=== PATIENT | male | born 1970 | race Caucasian/White ===

== ENCOUNTER → 2016-10-28 | Outpatient (CLI) | payer OTHER ==
--- NOTE | 2016-10-28 12:42 | XR ---
EXAMINATION TYPE: XR abdomen 1V DATE OF EXAM: 10/28/2016 12:28 PM COMPARISON: NONE HISTORY: Pain TECHNIQUE: Single supine KUB image of the abdomen is obtained FINDINGS: Small bowel demonstrates no evidence for dilatation or air fluid levels. Gas and fecal material is seen in non-distended colon. No convincing evidence for pneumoperitoneum. 6.9 mm calcific density overlies the left kidney. The lung bases are clear. The osseous structures are intact. IMPRESSION: 1. Overall nonobstructive bowel gas pattern.
--- NOTE | 2016-10-28 12:43 | XR ---
EXAMINATION TYPE: XR femur RT DATE OF EXAM: 10/28/2016 12:28 PM CLINICAL HISTORY: pain TECHNIQUE: Two views of the right femur are obtained. COMPARISON: None. FINDINGS: There is no acute fracture or dislocation seen of the femur. The hip and knee joints appear within normal limits. The overlying soft tissue appears unremarkable. IMPRESSION: There is no acute fracture or dislocation seen of the femur. ICD 10 NO FRACTURE, INITIAL EVALUATION
== END | disposition home or self-care (01) ==
LOC: RADXRMAIN 12:01
PROVIDERS: ATTEND Pediatrics
DX: Z01.818 Encounter for other preprocedural examination (principal); Z98.890 Other specified postprocedural states
CPT/HCPCS: 74000

== ENCOUNTER → 2018-10-10 | Outpatient (CLI) | payer OTHER, MEDICARE ==
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
== END | disposition home or self-care (01) ==
LOC: RADFLWHC 10:00 → EEVIPCON 10:00
PROVIDERS: ATTEND Internal Medicine
DX: J98.6 Disorders of diaphragm (principal)
CPT/HCPCS: 76000

== ENCOUNTER → 2019-02-15 | Outpatient (CLI) | payer MEDICARE, OTHER ==
[2019-02-15 16:19] LABS: Albumin 4.6 g/dL (3.80-4.90); Albumin/Globulin Ratio 3.07 (1.60-3.17); Bilirubin, Conjugated 0.2 mg/dL (0.20-0.40); Bilirubin,Unconjugated 0.3 mg/dL; Globulin 1.5 g/dL (1.6-3.3); Total Bilirubin 0.5 mg/dL (0.2-1.2); Total Protein 6.1 g/dL (6.2-8.2)
== END | disposition home or self-care (01) ==
LOC: LABWHC1 09:43
PROVIDERS: ATTEND Physical Medicine & Rehabilitation
DX: Z51.81 Encounter for therapeutic drug level monitoring (principal)
CPT/HCPCS: 36415; 80076

== ENCOUNTER 2019-11-11 10:37 | Emergency (ER) | payer MEDICARE, OTHER ==
[2019-11-11 11:15] VITALS: BP 126/64; RESP 18; TEMP 98.3
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
--- NOTE | 2019-11-11 14:29 | CT ---
EXAMINATION TYPE: CT pelvis w con DATE OF EXAM: 11/11/2019 COMPARISON: None. HISTORY: Left groin abscess. Pain and swelling left groin. CT DLP: 682.2 mGycm Automated exposure control for dose reduction was used. CONTRAST: Performed with IV Contrast, patient injected with 100 mL of Isovue 300. FINDINGS: Asymmetric right anterolateral upper thigh that stranding near image 81 could reflect soft tissue inf ection or cellulitis. Correlate clinically. No well-formed fluid collection or drainable abscess at t his level. Bilateral groin region shows no suspicious mass or adenopathy. No significant fat stranding is seen. Subcentimeter lymph nodes are present bilaterally. No significant hernias are present. Asymmetric mild thickening and fat stranding left posterior inferior gluteal region with some thin-wa lled fluid measuring 4.0 x 1.3 cm image 79. No well-formed drainable thick-walled abscess. Partial visualization of small to moderate-sized bilateral scrotal fluid collection or hydroceles. Mildly enlarged prostate gland consistent with BPH bulging on bladder base. Central calcifications. No suspicious small or large bowel dilatation. Appendix within normal limits right lower quadrant. Sm all fat-containing umbilical hernia. Prominence of fecal material in the rectum. Mild narrowing of both hip joints. Prominent bony projection right iliac crest could reflect heteroto pic ossification or product of old trauma. Infrarenal IVC filter right L2-L3 level noted. There is 9 mm pelvic calculus left kidney coronal imag e 46. IMPRESSION: 1. Moderate Inflammatory change posterior medial left inferior gluteal region as detailed above with thin-walled fluid collection noted. No well-formed drainable thick walled abscess currently. 2. Cannot exclude a second area of inflammatory change or cellulitis anterolateral right thigh versus old scar, correlate clinically. 3. Nonobstructing 9 mm left renal pelvic calculus, advise nonemergent urology referral if this is not known finding.
[2019-11-11 15:05] VITALS: PULSE 88
== END 2019-11-11 15:13 | disposition home or self-care (01) ==
LOC: EC 10:37
DX: L02.214 Cutaneous abscess of groin (principal); N20.0 Calculus of kidney; R41.82 Altered mental status, unspecified; G81.91 Hemiplegia, unspecified affecting right dominant side; Z99.3 Dependence on wheelchair; Z87.820 Personal history of traumatic brain injury; Z98.890 Other specified postprocedural states
CPT/HCPCS: 72193; 99283; Q9967; 87070; 87205

== ENCOUNTER 2019-12-04 10:50 | Day surgery (SDC) | payer OTHER, MEDICARE ==
[2019-12-02 15:20] VITALS: BMI 25.8
[~2019-12-04 10:50] MED LIST: ALBUTEROL NEB (CONC) 2.5 MG/0.5 ML INHALATION ONE; LACTATED RINGERS 1,000 ML IV SCH; LIDOCAINE 1% (10MG/ML) FOR IV START INTRADERMA PRN; LIDOCAINE 2% (PF) 20 MG/ML 5 ML VIAL INHALATION ONE; LIDOCAINE VISCOUS 300 MG/15 ML CUP MUCOUS MEM ONE; SODIUM CHLORIDE 0.9% 1,000 ML IV SCH
[2019-12-04 11:26] VITALS: RESP 16; TEMP 98.7
[2019-12-04] MEDS ORDERED: KETAMINE 10 MG/ML 20 ML VIAL ONE (12:12)
[2019-12-04] MEDS ORDERED: MIDAZOLAM 2 MG/2 ML VIAL ONE (12:12)
[2019-12-04] MEDS ORDERED: GLYCOPYRROLATE 0.2 MG/ML 2 ML VIAL ONE (12:12)
[2019-12-04] MEDS ORDERED: LIDOCAINE 2% INJ 20 MG/ML INTRATRACH ONE (12:19)
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
[2019-12-04 13:25] VITALS: BP 105/69; PULSE 81
== END 2019-12-04 13:45 | disposition home or self-care (01) ==
LOC: ORWHC2ENDO 10:50
PROVIDERS: ATTEND Internal Medicine Critical Care Medicine
DX: J39.8 Other specified diseases of upper respiratory tract (principal); E55.9 Vitamin D deficiency, unspecified; N31.9 Neuromuscular dysfunction of bladder, unspecified; J98.6 Disorders of diaphragm; G81.91 Hemiplegia, unspecified affecting right dominant side; Z90.49 Acquired absence of other specified parts of digestive tract; Z99.3 Dependence on wheelchair; Z87.820 Personal history of traumatic brain injury; Z82.49 Family history of ischemic heart disease and other diseases of the circulatory system; Z83.3 Family history of diabetes mellitus; Z82.69 Family history of other diseases of the musculoskeletal system and connective tissue; Z79.899 Other long term (current) drug therapy
CPT/HCPCS: 94640; 88108; 88305; 87252; 87070; 87205; 87116; 87102; 87206; 31624; J2250; J2001; 87496; 87498; 87502; 87529; 87634; 87798

== ENCOUNTER 2020-10-14 07:25 | Day surgery (SDC) | payer MEDICARE ==
[2020-10-07 15:04] VITALS: BMI 26.6
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
[~2020-10-14 07:25] MED LIST changes: -ALBUTEROL NEB (CONC) 2.5 MG/0.5 ML INHALATION ONE; +DEXAMETHASONE SOD PHOSPHATE 4 MG/ML 1 ML VIAL IV ONE; +HYDROmorphone 0.5 MG/0.5 ML SYRINGE IVP PRN; -LIDOCAINE 1% (10MG/ML) FOR IV START INTRADERMA PRN; -LIDOCAINE 2% (PF) 20 MG/ML 5 ML VIAL INHALATION ONE; -LIDOCAINE VISCOUS 300 MG/15 ML CUP MUCOUS MEM ONE; +ONDANSETRON 4 MG/2 ML VIAL IVP ONE; -SODIUM CHLORIDE 0.9% 1,000 ML IV SCH
[2020-10-14] MEDS ORDERED: LIDOCAINE 1% (10MG/ML) FOR IV START INTRADERMA ONE (08:46)
[2020-10-14] MEDS ORDERED: BUPIVACAINE (PF) 0.25% 30 ML VIAL SQ ONE ×2 (09:20→09:42)
[2020-10-14] MEDS ORDERED: ePHEDrine SULFATE/0.9% NACL/PF 50 MG/5 ML SYRINGE IV ONE (09:21)
[2020-10-14] MEDS ORDERED: fentaNYL (PF) 50 MCG/ML 2 ML AMP ONE (09:21)
[2020-10-14] MEDS ORDERED: PROPOFOL 10 MG/ML 20 ML VIAL IV ONE (09:21)
[2020-10-14] MEDS ORDERED: LIDOCAINE 1% INJ 10MG/ML (20 ML MDV) ONE (09:21)
--- NOTE | 2020-10-14 10:09 | P.OP ---
Date of Procedure: 10/14/20 Preoperative Diagnosis: Right hydrocele Postoperative Diagnosis: Same Procedure(s) Performed: Right hydrocelectomy Anesthesia: OCA Surgeon: Gavin Roberts Estimated Blood Loss (ml): 10 Pathology: other (Hydrocele sac) Condition: stable Disposition: PACU Indications for Procedure: Mr Valencia is 50 yo male with hx of right hydrocele, he is symptomatic from his hydrocele. I discussed with him and his the option of doing a right hydrocelectomy. Discussed the risk of bleeding, infection, injury to the testicle and risk of recurrence. I also discussed risk from anesthesia with them, discussed given his comorbidities he is at increased risk of complication. They understood all risks and agreed to proceed with right hydrocelectom Operative Findings: Right hydrocele Description of Procedure: Patient was brought to the operating room, general anesthesia was induced. He was prepped and draped in sterile fashion and placed in a supine position. An incision was made along the right hemiscrotum using a scalpel, the dartos tissue was dissected down using ultra cautery. This point the hydrocele sac was delivered. All surrounding tissue was dissected off of the hydrocele sac. Incision was made in the hydrocele sac and fluid was drained. Of note the hydrocele sac was fairly thickened, The hydrocele was sac was excised and sent to pathology. The edges of the hydrocele sac were cauterized. The testicle was delivered back into the scrotum in normal anatomical position. The dartos was closed using 3-0 Vicryl in running fashion. The skin was closed using 3-0 Monocryl in running fashion. Skin glue was applied to the incision. Patient was awakened from anesthesia and taken to recovery in stable condition
[2020-10-14 10:25] VITALS: TEMP 97.4
[2020-10-14 10:30] VITALS: RESP 16
[2020-10-14] MEDS ORDERED: LACTATED RINGERS 1,000 ML IV ONE (10:58)
[2020-10-14 11:34] VITALS: BP 118/77; PULSE 85
== END 2020-10-14 12:00 | disposition home or self-care (01) ==
LOC: OR 07:25
PROVIDERS: ATTEND Urology
DX: N43.3 Hydrocele, unspecified (principal); E78.5 Hyperlipidemia, unspecified; R47.01 Aphasia; M62.40 Contracture of muscle, unspecified site; R21 Rash and other nonspecific skin eruption; J98.6 Disorders of diaphragm; N31.9 Neuromuscular dysfunction of bladder, unspecified; G81.91 Hemiplegia, unspecified affecting right dominant side; Z87.820 Personal history of traumatic brain injury; Z87.828 Personal history of other (healed) physical injury and trauma; Z98.890 Other specified postprocedural states; Z99.3 Dependence on wheelchair; Z90.49 Acquired absence of other specified parts of digestive tract; Z87.39 Personal history of other diseases of the musculoskeletal system and connective tissue; Z79.899 Other long term (current) drug therapy; Z87.09 Personal history of other diseases of the respiratory system
CPT/HCPCS: 88302; 55040; J1100; J0690; J2405; J2001; J3010; J2704; J1170

== ENCOUNTER → 2022-01-26 | Outpatient (CLI) | payer MEDICARE ==
[2022-01-26 19:04] LABS: Basophils # (A) 0.06 X 10*3/uL (0.00-0.10); Basophils % (A) 0.7 %; Eosinophils # (A) 0.07 X 10*3/uL (0.04-0.35); Eosinophils % (A) 0.9 %; HCT 48.3 % (39.6-50.0); HGB 14.8 g/dL (13.0-17.0); Immature Grans, Automated 0.5 %; Lymphocytes # (A) 2.02 X 10*3/uL (0.90-5.00); Lymphocytes % (A) 25.1 %; MCH 29.4 pg (27.0-32.0); MCHC 30.6 g/dL (32.0-37.0); Mean Platelet Volume 11.6 fL (9.5-12.2); Monocytes # (A) 0.39 X 10*3/uL (0.20-1.00); Monocytes % (A) 4.9 %; NRBC Per 100 WBC 0 /100 WBCS (0.0-0.0); Neutrophils # (A) 5.46 X 10*3/uL (1.80-7.70); Neutrophils % (A) 67.9 %; Platelet Count 283 X 10*3/uL (140-440); RBC 5.03 X 10*6/uL (4.40-5.60); RDW 13.2 % (11.5-14.5); WBC 8.04 X 10*3/uL (4.50-10.00)
[2022-01-26 19:15] LABS: ALT 37 U/L (10-49); AST 25 U/L (14-35); African American GFR (CKD) 149.4 (60.0-200.0); Albumin 4.1 g/dL (3.8-4.9); Albumin/Globulin Ratio 1.54 (1.60-3.17); Alkaline Phosphatase 97 U/L (41-126); Blood Urea Nitrogen 14.6 mg/dL (9.0-27.0); Calcium 9.4 mg/dL (8.7-10.3); Carbon Dioxide 21.8 mmol/L (20.0-27.5); Chloride 103 mmol/L (96-109); Globulin 2.6 g/dL (1.6-3.3); Glucose 101 mg/dL (70-110); Lipase 37 U/L (14-60); Non-African American GFR(CKD) 128.9 (60.0-200.0); Potassium 4.4 mmol/L (3.5-5.5); Sodium 138 mmol/L (135-145); Total Bilirubin <0.15 mg/dL (0.30-1.20); Total Protein 6.7 g/dL (6.2-8.2)
== END | disposition home or self-care (01) ==
LOC: LABWHC1 10:39
PROVIDERS: ATTEND Family Medicine
DX: E11.9 Type 2 diabetes mellitus without complications (principal); R30.0 Dysuria
CPT/HCPCS: 36415; 80053; 83690; 85025; 87086

== ENCOUNTER 2022-02-18 10:04 | Day surgery (SDC) | payer MEDICARE ==
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
[2022-02-17 09:11] VITALS: BMI 23.5
[~2022-02-18 10:04] MED LIST changes: +CIPROFLOXACIN/DEXTROSE PMX 400 MG in DEXTROSE/WATER 1 200ML.BAG IVPB PRN; +GENTAMICIN 120 MG in SODIUM CHLORIDE 0.9% 100 ML IVPB PRN; +MIDAZOLAM 2 MG/2 ML VIAL IV PRN; -ONDANSETRON 4 MG/2 ML VIAL IVP ONE; +SCOPOLAMINE 1 MG/72 HR PATCH TRANSDERM ONE
[2022-02-18] MEDS ORDERED: LACTATED RINGERS 1,000 ML IV ONE (10:48)
--- NOTE | 2022-02-18 10:56 | XR ---
KUB HISTORY: Kidney stones Frontal KUB is submitted There is a calcification likely in the region of the left renal pelvis measuring approximately 2.3 cm , smaller calcifications are also scattered over the left kidney, several calcifications measure only approximately 3 to 4 mm, at the lower pole there is an approximate 11 mm calcification as well as a 5 mm calcification. Bowel gas obscures the right kidney. Inferior vena cava filter is present. There are calcifications within the pelvis. impression: Left-sided nephrolithiasis, multiple stones are present.
[2022-02-18] MEDS ORDERED: ONDANSETRON 4 MG/2 ML VIAL IVP ONE (11:26)
[2022-02-18] MEDS ORDERED: PHENYLEPHRINE-0.9% NACL SYG 1,000 MCG/10 ML SYRINGE ONE (11:55)
[2022-02-18] MEDS ORDERED: PROPOFOL 10 MG/ML 20 ML VIAL IV ONE (11:55)
[2022-02-18] MEDS ORDERED: MIDAZOLAM 2 MG/2 ML VIAL ONE (11:55)
[2022-02-18] MEDS ORDERED: LIDOCAINE 2% INJ 20 MG/ML (2 ML VIAL) ONE (11:55)
[2022-02-18] MEDS ORDERED: fentaNYL (PF) 50 MCG/ML 2 ML AMP ONE (11:55)
[2022-02-18 13:56] VITALS: RESP 16; TEMP 97
--- NOTE | 2022-02-18 14:01 | P.OP ---
Date of Procedure: 02/18/22 Preoperative Diagnosis: Left renal stone Postoperative Diagnosis: Same Procedure(s) Performed: Cystoscopy, left ureteroscopy, holmium laser lithotripsy stone basketing and stent insertion Implants: 6-Honduran by 26 cm stent in the left ureter Anesthesia: CANDI Surgeon: Gavin Roberts Estimated Blood Loss (ml): 20 Pathology: other (left renal stone) Condition: stable Disposition: PACU Indications for Procedure: This is a 51-year-old male that is quadriplegic, that presents with left-sided renal stone. Underwent CT which showed evidence of a 1.6 cm left sided renal pelvis stone and a 4 mm left-sided lower pole stone. Of note KUB this morning showed the stone in the pelvis measures at 2.3 cm He is symptomatic from his stone in the stones are causing mild hydronephrosis. Discussed given his symptoms and mild hydronephrosis a recommended proceeding with surgical intervention. Discussed with him and his the option of doing a staged ureteroscopy versus a PCNL. Discussed the risk and benefit of each approach. They agreed to proceed with left-sided ureteroscopy with holmium laser. Discussed the risk which includes but not limited to bleeding, infection, injury to the ureter, potential of sepsis. Discussed also with him given his stone burden he would require a staged procedure to address his stone. Discussed we will plan on proceeding with left-sided ureteroscopy followed by a second stage within 2-4 weeks. Discussed also he is at high risk of complication from anesthesia, given his comorbidities. They understood all the risk and agreed to proceed with left-sided ureteroscopy with holmium laser lithotripsy and stone basketing this will be a staged surgery Operative Findings: Large stone in the renal pelvis Description of Procedure: Patient brought to the operating room, general anesthesia was induced. He was prepped and draped in sterile fashion and placed in dorsal lithotomy position. Patient had narrowing at the meatus which was dilated using the male sounds. Cystoscopy fitted 17-Honduran sheath was inserted per urethra, cystoscopy was performed which showed no abnormality within the bladder. Of note patient had an enlarged median lobe. Attention was then carried to the left ureteral orifice which was intubated with a sensor wire. Next a ureteral access sheath was passed over the wire and into the proximal ureter. Next a flexible ureteroscope was inserted through the access sheath, renoscopy was performed which showed a large stone within the renal pelvis. Using the holmium laser stone was dusted, next sizable fragments were removed using stone basket. Repeat fluoroscopy and renoscopy showed no sizable fragments, but of note there was significant amount of dust which limited visualization. At this time pullback ureteroscopy was performed which showed no injury to the ureter or any ureteral stone. As the ureteroscope was withdrawn and a sensor wire was advanced through. Next a ureteral stent was passed over the wire, the proximal curl was visualized on fluoroscopy and the distal curl was visualized using the cystoscope. The bladder was emptied at the end the case. At this time he will follow-up in 2 weeks for a second stage ureteroscopy and stent removal
[2022-02-18 14:55] VITALS: BP 132/77; PULSE 78
--- NOTE | 2022-02-18 15:21 | FL ---
Fluoroscopy HISTORY: Lithotripsy for nephrolithiasis 53 seconds fluoroscopy time supplied to the referring clinician. 4 intraoperative C-arm images docum ent the procedure. See dictated report from urology.
== END 2022-02-18 15:31 | disposition home or self-care (01) ==
LOC: OR 10:04
PROVIDERS: ATTEND Urology
DX: N13.2 Hydronephrosis with renal and ureteral calculous obstruction (principal); G82.50 Quadriplegia, unspecified; E78.5 Hyperlipidemia, unspecified; R47.01 Aphasia; Z87.820 Personal history of traumatic brain injury; Z99.3 Dependence on wheelchair; Z79.899 Other long term (current) drug therapy; Z90.49 Acquired absence of other specified parts of digestive tract; Z98.890 Other specified postprocedural states
CPT/HCPCS: 82365; 74018; 52356; C2625; C1894; C1758; C1769; J2250; J2405; J3010; J0744; J1580; J2370; J2704; J2001

== ENCOUNTER → 2022-03-10 | Day surgery (SDC) | payer MEDICARE ==
[2022-03-09 09:23] VITALS: BMI 23.5
[~2022-03-10] MED LIST changes: +DEXAMETHASONE SOD PHOSPHATE 4 MG/ML 1 ML VIAL ONE; +IOPAMIDOL-370 50ML BTL IRRIGATION ONE; +LACTATED RINGERS 1,000 ML IV ONE; +LIDOCAINE 2% INJ 20 MG/ML (2 ML VIAL) ONE; -MIDAZOLAM 2 MG/2 ML VIAL IV PRN; +MIDAZOLAM 2 MG/2 ML VIAL ONE; +ONDANSETRON 4 MG/2 ML VIAL IVP ONE; +ONDANSETRON 4 MG/2 ML VIAL ONE; +PHENYLEPHRINE-0.9% NACL SYG 1,000 MCG/10 ML SYRINGE ONE; +PROPOFOL 10 MG/ML 20 ML VIAL IV ONE; -SCOPOLAMINE 1 MG/72 HR PATCH TRANSDERM ONE; +fentaNYL (PF) 50 MCG/ML 2 ML AMP ONE
[2022-03-10 15:06] VITALS: RESP 18
[2022-03-10 15:44] VITALS: BP 145/76; PULSE 76
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
--- NOTE | 2022-03-10 16:12 | XR ---
KUB HISTORY: Presurgical Frontal KUB submitted and correlated prior exam 02/18/2022 Left double-J stent is in place. Multiple loops of gas-filled bowel are scattered over the abdomen li miting evaluation. Inferior vena cava filter is again seen. There are calcifications seen within the pelvis similar to prior. Calcifications are seen overlying the left kidney, suggestion of partial sta ghorn calculus, possible fragmented stones. Posttraumatic changes to the right ilium is stable. IMPRESSION: Nephrolithiasis with indwelling left ureteral stent.
--- NOTE | 2022-03-10 16:14 | P.OP ---
Date of Procedure: 03/10/22 Preoperative Diagnosis: Left renal stone Postoperative Diagnosis: Same Procedure(s) Performed: Cystoscopy, left ureteroscopy, holmium laser lithotripsy, stone basketing and stent removal Implants: None Anesthesia: CANDI Surgeon: Gavin Roberts Estimated Blood Loss (ml): 5 Pathology: other (Left renal stone) Condition: stable Disposition: PACU Indications for Procedure: This is a 51-year-old male that is quadriplegic, that presents with left-sided renal stone. Underwent CT which showed evidence of a 1.6 cm left sided renal pelvis stone and a 4 mm left-sided lower pole stone. He is symptomatic from his stone in the stones are causing mild hydronephrosis. He underwent left sided stage 1 ureteroscopy with holmium laser on 02/18/22, he presents today for second stage left sided ureteroscopy with holmium laser . Discussed the risk which includes but not limited to bleeding, infection, injury to the ureter, potential of sepsis. Discussed also he is at high risk of complication from anesthesia, given his comorbidities. They understood all the risk and agreed to proceed with left-sided ureteroscopy with holmium laser lithotripsy and stone basketing this will be a second staged surgery Operative Findings: Multiple small stone fragments within the lower pole of the left kidney Description of Procedure: Patient brought to the operating room, general anesthesia was induced. He was prepped and draped in sterile fashion a placed in dorsal lithotomy position. Cystoscopy fitted with a 21-Armenian sheath was inserted per urethra, cystoscopy was performed showed no abnormality within the bladder. the stent was grasped and removed intact. Next a semirigid ureteroscope was advanced up the urethra and up the left ureteral orifice, the scope was advanced all the way up to the proximal ureter which showed no stones along the course of the ureter. Pullback ureteroscopy was performed which showed no injury to the ureter as the ureteroscope was withdrawn a sensor wire was advanced through. Next a 1214 Armenian access sheath was passed over the wire and into the proximal ureter. Next the flexible ureteroscope was inserted through the access sheath, renoscopy was performed showed a small fragments within the lower pole. Using the holmium laser the fragments were further lasered, sizable fragments were removed and sent to analysis. Repeat renoscopy showed no sizable fragments or injury to the kidney. Pullback ureteroscopy was performed which showed no injury to the ureter or any ureteral fragments. There was no evidence of ureteral edema and the ureter was dilated thus stent was not placed. The bladder was emptied at the end of the case. Patient tolerated procedure well was taken to recovery in stable condition
--- NOTE | 2022-03-11 07:39 | FL ---
Fluoroscopy HISTORY: Left renal stone 24 seconds fluoroscopy time supplied to the referring clinician. 2 intraoperative C-arm images docum ent the procedure. See dictated report from urology.
== END | disposition home or self-care (01) ==
LOC: OR 10:43
PROVIDERS: ATTEND Urology
DX: N13.2 Hydronephrosis with renal and ureteral calculous obstruction (principal); G82.50 Quadriplegia, unspecified
CPT/HCPCS: 52353; 82365; 74420; 74018; C1894; C1769; J2250; J1100; J2405; J3010; J2370; J2704; Q9967; J2001

== ENCOUNTER → 2023-03-08 | Outpatient (CLI) | payer MEDICARE ==
[2023-03-08 15:57] LABS: ALT 25 U/L (10-49); AST 19 U/L (14-35); African American GFR (CKD) 135.7 (60.0-200.0); Albumin 4.6 g/dL (3.8-4.9); Alkaline Phosphatase 96 U/L (41-126); BUN/Creat Ratio 20.62 Ratio (12.00-20.00); Calcium 9.8 mg/dL (8.7-10.3); Carbon Dioxide 26.7 mmol/L (20.0-27.5); Chloride 101 mmol/L (96-109); Chol/HDL Ratio 2.29 Ratio; Glucose 129 mg/dL (70-110); LDL Cholesterol,Calculated 33.1 mg/dL (0.0-131.0); Non-African American GFR(CKD) 117.1 (60.0-200.0); Potassium 4.4 mmol/L (3.5-5.5); Sodium 139 mmol/L (135-145); Total Protein 6.6 g/dL (6.2-8.2)
== END | disposition home or self-care (01) ==
LOC: LABWHC1 09:41
PROVIDERS: ATTEND Family Medicine
DX: E11.9 Type 2 diabetes mellitus without complications (principal); E78.00 Pure hypercholesterolemia, unspecified
CPT/HCPCS: 36415; 80053; 80061; 83036; 84443

== ENCOUNTER → 2023-05-30 | Outpatient (CLI) | payer MEDICARE ==
[2023-05-30 19:58] LABS: ALT 22 U/L (10-49); AST 16 U/L (14-35); Albumin 4.9 d/dL (3.8-4.9); Albumin/Globulin Ratio 2.72 Ratio (1.60-3.17); Alkaline Phosphatase 88 U/L (41-126); Blood Urea Nitrogen 14.7 mg/dL (9.0-27.0); Calcium 9.7 mg/dL (8.7-10.3); Carbon Dioxide 26.6 mmol/L (21.6-31.8); Chloride 104 mmol/L (96-109); Chol/HDL Ratio 2.38 Ratio; Globulin 1.8 d/dL (1.6-3.3); Glucose 107 mg/dL (70-110); LDL Cholesterol,Calculated 40.2 mg/dL (0.0-131.0); Potassium 4.7 mmol/L (3.5-5.5); Sodium 141 mmol/L (135-145); Total Bilirubin 0.3 mg/dL (0.3-1.2); Total Protein 6.7 d/dL (6.2-8.2); VLDL Calculation 17.74 mg/dL (5.00-40.00)
[2023-05-30 21:30] LABS: Basophils # (A) 0.04 X 10*3/uL (0.00-0.10); Basophils % (A) 0.6 %; Eosinophils # (A) 0.07 X 10*3/uL (0.04-0.35); HCT 48.8 % (39.6-50.0); HGB 16.2 d/dL (13.0-17.0); Lymphocytes # (A) 1.99 X 10*3/uL (0.90-5.00); Lymphocytes % (A) 28.6 %; MCHC 33.2 d/dL (32.0-37.0); MCV 93.5 FL (80.0-97.0); Monocytes # (A) 0.35 X 10*3/uL (0.20-1.00); NRBC Per 100 WBC 0 X 10*3/uL (0.00-0.01); Neutrophils # (A) 4.47 X 10*3/uL (1.80-7.70); Neutrophils % (A) 64.2 %; Platelet Count 130 X 10*3/uL (140-440); RBC 5.22 X 10*6/uL (4.40-5.60); RDW 12.8 % (11.5-14.5); WBC 6.96 X 10*3/uL (4.50-10.00)
== END | disposition home or self-care (01) ==
LOC: LABWHC1 12:45
PROVIDERS: ATTEND Family Medicine
DX: Z00.00 Encounter for general adult medical examination without abnormal findings (principal); Z12.5 Encounter for screening for malignant neoplasm of prostate; E11.9 Type 2 diabetes mellitus without complications; E78.00 Pure hypercholesterolemia, unspecified; S06.9X9S Unspecified intracranial injury with loss of consciousness of unspecified duration, sequela; Y99.9 Unspecified external cause status
CPT/HCPCS: 36415; 80053; 80061; 83036; 84153; 84443; 85025

== ENCOUNTER 2024-05-12 10:26 | Observation (INO) | payer MEDICARE ==
[2024-05-12] MEDS ORDERED: NITROGLYCERIN SL TABS 0.4 MG TAB SUBLINGUAL PRN (11:08)
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
[2024-05-12] MEDS: ASPIRIN 81 MG PO STA (11:41)
[2024-05-12] MEDS: NITROGLYCERIN OINT 1 INCH/GM PACKET TOPICAL SCH (11:42)
[2024-05-12 13:56] LABS: Glucose,Whole Blood 122 mg/dL (70-110)
[2024-05-12] MEDS: DANTROLENE SODIUM 100 MG PO SCH ×2 (16:10→21:32)
[2024-05-12] MEDS: ATORVASTATIN 40 MG TAB PO SCH (21:32)
[2024-05-13 06:26] LABS: Glucose,Whole Blood 139 mg/dL (70-110)
[2024-05-13] MEDS ORDERED: DOBUTamine DRIP for NUC MED 500 MG in DEXTROSE/WATER 1 250ML.BAG IV PRN (08:35)
[2024-05-13 08:55] LABS: Chol/HDL Ratio 2.47 Ratio; LDL Cholesterol,Calculated 38.6 mg/dL (0.0-131.0); VLDL Calculation 19.18 mg/dL (5.00-40.00)
[2024-05-13] MEDS ORDERED: ASPIRIN 325 MG TAB PO SCH (09:00)
[2024-05-13] MEDS: ASPIRIN 81 MG PO SCH (09:29)
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
[2024-05-13 12:06] LABS: Glucose,Whole Blood 137 mg/dL (70-110)
[2024-05-13 14:50] VITALS: BP 137/68; PULSE 106; RESP 16; TEMP 98.2
[2024-05-13] MEDS: PIOGLITAZONE 45 MG TAB PO SCH (15:00)
[2024-05-13] MEDS: MULTIVITAMINS, THERA 1 EACH TAB PO SCH (15:00)
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
--- NOTE | 2024-05-13 15:44 | CA ---
Dobutamine Stress Echocardiogram Report Dorian Valencia Age: 53 Gender: M : 1970 Exam Date: 05/13/2024 13:41 Exam Location: [facility] Ordering Physician: Otilia Conde Referring Physician: [id number] Senior [employer] Network Engineer: Lauren Xie RDCS Technologist: Ht (in): 68 Wt (lb): 145 Procedure CPT: Indication: CP ICD-9 Codes: Rhythm: Patient History: CHEST PAIN, DIABETIC, HYPERCHOLESTEROLEMIA, FAMILY HX OF HEART DISEASE Cardiac Medications: Medications in past 24 hours: Contrast: Definity Total Dose (mL): 3 Stress Results Protocol: Dobutamine Peak Dose (???g/kg/min): 40 Duration (min:sec): Atropine:(mg) Target HR: 142 Double Product: [id number] Resting HR: 87 Resting BP: 114 / 74 Peak HR: 123 Peak BP: 173 / 66 Max Predicted HR: 167 74 % Max Predicted HR Stress Summary: BP Response: Reason for Termination: DIRECTED PER PLANT TENDER Cardiac Symptoms: NO SYMPTOMS ECG Analysis Resting EKG: Stress EKG: Arrhythmia: Echo Analysis Base Echo Analysis: Low Echo Anaylsis: Peak Echo Analysis: Recovery Echo: MEASUREMENTS (Male/Female) Normal Values CONCLUSIONS Dobutamine stress echo shows no evidence for ischemia or arrhythmia No echocardiographic evidence for ischemia No EKG evidence for ischemia Very occasional PVCs Dr. Kostas Hunt MD (Electronically Signed) Final Date: 13 May 2024 15:43
[2024-05-13 17:12] LABS: Glucose,Whole Blood 219 mg/dL (70-110)
--- NOTE | 2024-05-13 17:47 | CA ---
Transthoracic Echo Report Name: Dorian Valencia Age: 53 Gender: M : 1970 Exam Date: 05/13/2024 10:16 Exam Location: [facility] Ht (in): 68 Wt (lb): 150 Ordering Physician: Otilia Conde Attending/Referring Phys: [id number], Amaya Manager Search Naomie Ochoa RDCS Procedure CPT: Indications: CP, LV function Cardiac Hx: Technical Quality: Technically difficult study Contrast 1: Definity Total Dose (mL): 2 Contrast 2: Total Dose (mL): MEASUREMENTS (Male / Female) Normal Values 2D ECHO LV Diastolic Diameter PLAX 4.1 cm 4.2 - 5.9 / 3.9 - 5.3 cm LV Systolic Diameter PLAX 2.8 cm IVS Diastolic Thickness 1.1 cm 0.6 - 1.0 / 0.6 - 0.9 cm LVPW Diastolic Thickness 1.1 cm 0.6 - 1.0 / 0.6 - 0.9 cm LV Relative Wall Thickness 0.5 LVOT Diameter 2.3 cm LV Diastolic Volume MOD BP 62.5 cm??? 67 - 155 / 56 - 104 cm??? LV Systolic Volume MOD BP 25.7 cm??? 22 - 58 / 19 - 49 cm??? LV Ejection Fraction MOD BP 58.9 % >= 55 % LV Cardiac Index MOD BP 1769.3 cm???/min???m??? LV Diastolic Volume MOD 4C 63.1 cm??? LV Systolic Volume MOD 4C 28.4 cm??? LV Ejection Fraction MOD 4C 55.0 % LV Cardiac Index MOD 4C 1667.6 cm???/min???m??? LV Diastolic Length 4C 7.1 cm LV Systolic Length 4C 6.3 cm LV Diastolic Volume MOD 2C 61.1 cm??? LV Systolic Volume MOD 2C 21.4 cm??? LV Ejection Fraction MOD 2C 64.9 % LV Cardiac Index MOD 2C 1907.3 cm???/min???m??? LV Diastolic Length 2C 7.2 cm LV Systolic Length 2C 5.7 cm Ascending Aorta Diameter 3.5 cm DOPPLER AV Peak Velocity 92.8 cm/s AV Peak Gradient 3.4 mmHg AV Mean Velocity 69.1 cm/s AV Mean Gradient 2.1 mmHg AV Velocity Time Integral 17.7 cm LVOT Peak Velocity 75.0 cm/s LVOT Peak Gradient 2.3 mmHg LVOT Velocity Time Integral 13.8 cm LVOT Stroke Volume 58.2 cm??? LVOT Stroke Volume Index 32.2 ml/m??? LVOT Cardiac Index 2797.2 cm???/min???m??? AV Area Cont Eq vti 3.3 cm??? AV Area Cont Eq pk 3.4 cm??? MV Area PHT 6.0 cm??? Mitral E Point Velocity 51.4 cm/s Mitral A Point Velocity 59.3 cm/s Mitral E to A Ratio 0.9 MV Deceleration Time 126.1 ms PV Peak Velocity 104.7 cm/s PV Peak Gradient 4.4 mmHg FINDINGS Left Ventricle Left ventricular ejection fraction is estimated at 55-60 %. Mildly increased septal wall thickness. Left ventricular cavity size normal. No obvious regional wall motion abnormalities. Right Ventricle Normal right ventricular size and function. Unable to estimate the right ventricular systolic pressure. Right Atrium Normal right atrial size. Left Atrium Normal left atrial size. Mitral Valve Structurally normal mitral valve. No evidence for mitral valve prolapse. No mitral stenosis. Mild mitral regurgitation. Aortic Valve Aortic valve not well visualized. No aortic valve stenosis or regurgitation. Tricuspid Valve Structurally normal tricuspid valve. No tricuspid stenosis. Trace tricuspid regurgitation. Pulmonic Valve Pulmonic valve not well visualized. Pericardium No pericardial effusion. Aorta Normal size aortic root and proximal ascending aorta. CONCLUSIONS Normal LV size and function Previewed by: Dr. Kostas Hunt MD (Electronically Signed) Final Date: 13 May 2024 17:45
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
== END 2024-05-13 19:29 | disposition home or self-care (01) ==
LOC: EC 10:26 → 6NMEDSUR 11:08
PROVIDERS: ADMIT Internal Medicine; ATTEND Internal Medicine
DX: R07.89 Other chest pain (principal); R00.0 Tachycardia, unspecified; E11.9 Type 2 diabetes mellitus without complications; E78.5 Hyperlipidemia, unspecified; G81.91 Hemiplegia, unspecified affecting right dominant side; R47.01 Aphasia; Z79.84 Long term (current) use of oral hypoglycemic drugs; Z79.899 Other long term (current) drug therapy; Z87.820 Personal history of traumatic brain injury
CPT/HCPCS: 99285; 94760; 93005; 85379; 80061; 84484; G0378 ×2; C8929; C8930; Q9957; Q9950; 93306; 93351

== ENCOUNTER 2025-05-01 14:25 | Emergency (ER) | payer MEDICARE ==
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
[2025-05-01 15:38] LABS: Bacteria,Urine Rare /hpf; Bilirubin,Urine Negative (Negative); Blood,Urine Negative (Negative); Color,Urine Light Yellow; Glucose,Urine (UA) Negative (Negative); Ketones,Urine Negative (Negative); Leukocyte Esterase,Urine Trace (Negative); Nitrite,Urine Negative (Negative); PH, Urine 7.0 (5.0-8.0); Protein,Urine Negative (Negative); RBC,Urine <1 /hpf (0-5); Specific Gravity,Urine 1.004 (1.001-1.035); Squamous Epithelial Cell,Urine <1 /hpf (0-4); Urobilinogen,Urine <2.0 mg/dL (<2.0); WBC,Urine 4 /hpf (0-5)
[2025-05-01] MEDS: HYDROmorphone 0.5 MG/0.5 ML SYRINGE IVP STA (15:46)
[2025-05-01] MEDS: HYDROmorphone 0.5 MG/0.5 ML SYRINGE IM STA (15:48)
[2025-05-01 15:50] LABS: Basophils # (A) 0.05 10*3/uL (0.00-0.10); Basophils % (A) 0.7 %; Eosinophils # (A) 0.07 10*3/uL (0.04-0.35); Eosinophils % (A) 1.0 %; HCT 43.5 % (39.6-50.0); HGB 15.3 g/dL (13.0-17.0); Lymphocytes # (A) 2.03 10*3/uL (0.90-5.00); Lymphocytes % (A) 28.1 %; MCH 31.7 pg (27.0-32.0); MCHC 35.2 g/dL (32.0-37.0); MCV 90.2 fL (80.0-97.0); Monocytes # (A) 0.58 10*3/uL (0.20-1.00); Monocytes % (A) 8.0 %; Neutrophils # (A) 4.48 10*3/uL (1.80-7.70); Neutrophils % (A) 61.9 %; Platelet Count 178 10*3/uL (140-440); RBC 4.82 10*6/uL (4.40-5.60); RDW 13.0 % (11.5-14.5); WBC 7.23 10*3/uL (4.50-10.00)
[2025-05-01 16:02] LABS: African American GFR (CKD) >90 (>60 ml/min/1.73 sqM); Anion Gap 9 mmol/L; Blood Urea Nitrogen 15 mg/dL (9-20); Calcium 9.8 mg/dL (8.4-10.2); Carbon Dioxide 29 mmol/L (22-30); Chloride 97 mmol/L (98-107); Glucose 159 mg/dL (74-99); Non-African American GFR(CKD) >90 (>60 ml/min/1.73 sqM); Potassium 4.6 mmol/L (3.5-5.1); Sodium 135 mmol/L (137-145)
--- NOTE | 2025-05-01 16:54 | US ---
EXAMINATION TYPE: US scrotum with doppler. DATE OF EXAM: 05/01/2025 COMPARISON: CT PELVIC 2019 CLINICAL INDICATION: Male, 54 years old with history of left testicular swelling; Left testicular mindy n and swelling x 1.5 days, Hx right side hydrocele and right testicular injury TECHNIQUE: Grayscale, color Doppler and spectral Doppler imaging of the scrotum. FINDINGS: EXAM MEASUREMENTS: TESTICLES: Right Testicle: 4.5 x 2.3 x 3.2 cm Left Testicle: 4.5 x 2.7 x 3.4 cm EPIDIDYMIS HEAD: Right Epididymis: 1.2 cm Left Epididymis: 0.8 cm Doppler performed to assess for testicular vascularity; good bilateral color flow and spectral wavefo wanda are seen. There is no evidence of testicular torsion. Presence of hydroceles: 5.9 x 3.9 x 3.0 cm left side hydrocele with debris and septations. Presence of varicoceles: no Benign 3 mm right epididymal simple cyst. Left epididymis appears hypervascular. Left side scrotal wall thickening. IMPRESSION: 1. Edematous hypervascular appearance of the left epididymis consistent with epididymitis. Additiona lly there is a large left hydrocele with debris and internal septations with associated scrotal wall thickening. Findings raise concern for developing pyocele. 2. No evidence for testicular torsion. [facility], , 05/01/2025 4:52 PM
[2025-05-01 17:50] VITALS: RESP 18
[2025-05-01] MEDS: cefTRIAXone 1,000 MG VIAL (IM USE) IM STA (18:52)
[2025-05-01 18:59] VITALS: BP 113/87; PULSE 92
[2025-05-01 19:14] VITALS: TEMP 98.1
== END 2025-05-01 19:12 | disposition home or self-care (01) ==
LOC: EC 14:25
DX: N45.1 Epididymitis (principal); E78.5 Hyperlipidemia, unspecified; E11.9 Type 2 diabetes mellitus without complications; Z79.84 Long term (current) use of oral hypoglycemic drugs; Z99.3 Dependence on wheelchair; Z87.820 Personal history of traumatic brain injury
CPT/HCPCS: 36415; 80048; 85025; 81001; 93975; 76870; 99284; 96372; J0696; J1171